=== PATIENT | female | born 1995 | race Caucasian/White ===

== ENCOUNTER 2018-12-18 14:09 | Emergency (ER) | payer OTHER ==
[~2018-12-18] VITALS: Ht 154.9 cm; Wt 64.5 kg
[2018-12-18 14:14] VITALS: BP 147/93; TEMP 97.9
[2018-12-18] MEDS ORDERED: MULTI VITAMINS1 TAB PO (15:01)
[2018-12-18] MEDS ORDERED: ADVIL200 MG PO (15:02)
[2018-12-18] MEDS ORDERED: AVIANE 0.02 MG-1 TAB PO (15:02)
[2018-12-18 15:47] LABS: BASO % 0.5 % (0.0-2.0); EOS # 0.1 (0.0-0.7); EOS % 2.3 % (0-4.0); GRAN # 3.5 (1.4-6.5); GRAN % 56.5 % (42.2-75.2); HEMATOCRIT 45.2 % (37.0-47.0); HEMOGLOBIN 15.1 g/dl (12.5-16.0); LYMPH # 2.1 (1.2-3.4); LYMPH % 33.3 % (20.0-51.0); MEAN CELL VOLUME 89 fl (80.0-100.0); MEAN CORPUSCULAR HEMOGLOBIN 30 pg (27.0-31.0); MEAN CORPUSCULAR HGB CONC 33 g/dl (33.0-37.0); MONO # 0.5 (0.1-0.6); MONO % 7.2 % (1.7-9.3); PLATELET COUNT 258 K/mm3 (130-400); REDCELL DISTRIBUTION WIDTH-CV 12.2 % (11.5-14.5)
[2018-12-18 15:57] LABS: ALANINE AMINOTRANSFERASE < 6 U/L (9-52); ALBUMIN 4.9 gm/dL (3.5-5.0); ALKALINE PHOSPHATASE 57 U/L (50-136); ANION GAP 10 mmol/L (7-16); AST,SGOT 24 U/L (15-37); BILIRUBIN,TOTAL 0.3 mg/dL (0.0-1.0); BLOOD UREA NITROGEN 9 mg/dL (7-17); C-REACTIVE PROTEIN 1.8 mg/dL (0.0-0.9); CALCIUM 9.8 mg/dL (8.4-10.2); CARBON DIOXIDE 28 mmol/L (22-30); CHLORIDE 103 mmol/L (98-107); CREATININE, serum 0.64 (0.52-1.25); GLUCOSE 80 mg/dL (74-106); POTASSIUM 3.6 mmol/L (3.4-5.0); SODIUM 141 mmol/L (137-145); TOTAL PROTEIN 8.6 gm/dL (6.4-8.2)
[2018-12-18 17:07] VITALS: PULSE 75
== END 2018-12-18 17:00 | disposition home or self-care (01) ==
LOC: COL.ER 14:09
PROVIDERS: Physician Assistant
DX: J90 Pleural effusion, not elsewhere classified (principal)
CPT/HCPCS: J7030; Q9967

== ENCOUNTER → 2018-12-18 | Outpatient (CLI) | payer OTHER ==
[~2018-12-18] MED LIST: ADVIL200 MG PO; AVIANE 0.02 MG-1 TAB PO; MULTI VITAMINS1 TAB PO
== END ==
LOC: COL.LAB 11:27
DX: R07.9 Chest pain, unspecified (principal)